=== PATIENT | male | born 1990 | race Caucasian/White ===

== ENCOUNTER 2023-02-21 09:31 | Outpatient (CLI) | payer BC, SELFPAY | END 2023-02-21 09:32 | disposition home or self-care (01) | PROVIDERS: PCP Nurse Practitioner Family; Visit Provider Nurse Practitioner Family | DX: R53.83 Other fatigue (principal); R10.13 Epigastric pain; G62.9 Polyneuropathy, unspecified | CPT/HCPCS: 80053; 82150; 82607; 82784; 83690; 85025; 86039; 86364 ==

== ENCOUNTER 2023-02-22 09:15 | Outpatient (CLI) | payer BC, SELFPAY ==
[2023-02-22 14:16] LABS: H pylori Ag Stool* Negative (Negative)
== END 2023-02-22 09:16 | disposition home or self-care (01) ==
LOC: KYNREF 09:26
PROVIDERS: PCP Nurse Practitioner Family; Visit Provider Nurse Practitioner Family
DX: R10.13 Epigastric pain (principal)
CPT/HCPCS: 87338

== ENCOUNTER 2023-03-20 19:30 | Outpatient (CLI) | payer BC, SELFPAY ==
--- NOTE | 2023-03-30 14:03 | W.PM.SLEEP ---
Sleep Study Details Details Interpreting Provider: Elena Date of Sleep Study: 03/20/23 Sleep Study Details: STUDY TYPE:? Home unattended ? BMI:? 39.3 ORDERING PROVIDER:Ruthie Arias INDICATION:? Concerns about sleep apnea ? SLEEP SUMMARY:? 409 minutes monitored RESPIRATORY SUMMARY:? AHI 15.7, supine 15.6, prone 10.9, left lateral 25.1, right lateral 42.3 Low oxygen 81 31.9% of study oxygen less than 90% Snoring 4.7% PERIODIC LIMB MOVEMENTS OF SLEEP:? Not recorded during home study CARDIAC:? Range 48-105, mean 72.4 IMPRESSION:? Moderate obstructive sleep apnea worse in the lateral positions with significant hypo oxygenation RECOMMENDATION: Treatment options include AutoSet CPAP possibly a dental appliance. Weight loss is also recommended. Once affective sleep therapy is established recommend an overnight oximetry study.
== END 2023-03-20 19:31 | disposition home or self-care (01) ==
LOC: SLEEP 23:09
PROVIDERS: PCP Nurse Practitioner Family; Visit Provider Nurse Practitioner Family
DX: G47.33 Obstructive sleep apnea (adult) (pediatric) (principal)
CPT/HCPCS: 95806

== ENCOUNTER 2023-04-12 14:52 | Outpatient (CLI) | payer BC, SELFPAY | END 2023-04-12 14:53 | disposition home or self-care (01) | PROVIDERS: PCP Nurse Practitioner Family; Visit Provider Nurse Practitioner Family | DX: R53.83 Other fatigue (principal) | CPT/HCPCS: 80048; 81015; 86618 ==

== ENCOUNTER 2023-05-20 08:07 | Outpatient (CLI) | payer BC, SELFPAY | END 2023-05-20 08:08 | disposition home or self-care (01) | LOC: KYNREF 08:11 | PROVIDERS: PCP Nurse Practitioner Family; Visit Provider Nurse Practitioner Family | DX: R53.83 Other fatigue (principal); Z13.6 Encounter for screening for cardiovascular disorders; Z13.1 Encounter for screening for diabetes mellitus | CPT/HCPCS: 80061 ==

== ENCOUNTER 2023-07-14 08:13 | Outpatient (CLI) | payer BC, SELFPAY ==
[2023-07-14 09:18] LABS: Glucose Fasting 86 mg/dl (70-95)
[2023-07-14 10:52] LABS: Glucose 2 Hour 98 mg/dl (70-155)
[2023-07-18 17:15] LABS: Vitamin B6 (Pyridoxal 5-Phos) 17.8 nmol/L (20.0-125.0)
== END 2023-07-14 08:14 | disposition home or self-care (01) ==
PROVIDERS: PCP Nurse Practitioner Family; Visit Provider Psychiatry & Neurology Neurology
DX: G58.8 Other specified mononeuropathies (principal)
CPT/HCPCS: 36415; 82947; 82950; 84207; 86334

== ENCOUNTER 2023-09-28 12:59 | Outpatient (CLI) | payer BC, SELFPAY | END 2023-09-28 13:00 | disposition home or self-care (01) | LOC: RAD 13:00 | PROVIDERS: PCP Nurse Practitioner Family; Visit Provider Nurse Practitioner Family | DX: I51.7 Cardiomegaly (principal); I35.1 Nonrheumatic aortic (valve) insufficiency; I34.0 Nonrheumatic mitral (valve) insufficiency; I07.1 Rheumatic tricuspid insufficiency | CPT/HCPCS: 93306 ==

== ENCOUNTER 2024-10-25 11:06 | Outpatient (CLI) | payer BC, SELFPAY | END 2024-10-25 11:07 | disposition home or self-care (01) | PROVIDERS: PCP Nurse Practitioner Family; Visit Provider Nurse Practitioner Family | DX: R20.2 Paresthesia of skin (principal) | CPT/HCPCS: 80053; 82607; 84443; 85025 ==

== ENCOUNTER 2024-12-07 07:51 | Outpatient (CLI) | payer BC, SELFPAY | END 2024-12-07 07:52 | disposition home or self-care (01) | LOC: RAD 07:51 | PROVIDERS: PCP Nurse Practitioner Family; Visit Provider Nurse Practitioner Family | DX: I77.810 Thoracic aortic ectasia (principal); I07.1 Rheumatic tricuspid insufficiency | CPT/HCPCS: 93306 ==

== ENCOUNTER 2024-12-11 16:44 | Outpatient (CLI) | payer BC, SELFPAY | END 2024-12-11 16:45 | disposition home or self-care (01) | PROVIDERS: PCP Nurse Practitioner Family; Visit Provider Nurse Practitioner Family | DX: R53.83 Other fatigue (principal); R20.2 Paresthesia of skin | CPT/HCPCS: 82728; 84207; 84403 ==

== ENCOUNTER 2025-05-02 20:23 | Emergency (ER) | payer BC, SELFPAY ==
--- OUTSIDE RECORDS SUMMARY | 2025-05-02 20:25 | XMS_ITS | Clinical Summary ---
Author Organization [facility] Address [address] , [address] [place] [address] Phone Care Team Providers Care Corporate Law Specialist Name Role Phone 4CareTeamNurse-MA, 4CareTeamNurse-MA Unavailable Unavailable Conditions or Problems Problem Name Problem Code Onset Date Status Entry Date Provider Comment Standard Description Annotate Herpetic neuralgia 86565720 (SNOMED CT) Active Glory Chiu Neuralgia Numbness tingling bilat legs below knees [id number] (SNOMED CT) Active Glory Chiu Paresthesia of lower extremity Medications Medication Instructions Start Date Stop Date Generic Name NDC Provider OMEPRAZOLE 20 MG CPDR omeprazole [id number] Fernie Watson MD Medications Administered No information available. Allergies, Adverse Reactions, Alerts Allergy Name Reaction Description Start Date Severity Statu s Provider NO KNOWN DRUG ALLERGIES Mild Active Glory Chiu Results Date Name Value Unit Range Flag Description Office Visit: Office Visit P aresthesia of skin Records sent Pt schd fax MEDS REVIEW Done Documenta tion of current medications (procedure) Internal Other: Authorizatio n - OBS [email or web address] Yes Authoriza tion: Release of Information - Authorize [facility] - Payment and Healthcare Operations ROIAUTHOTHER Yes Authoriz ation: Release of Information - Authorize Others/Insurance - Payment and Healthcare Operations HIECONSENT Yes Consent To Release information to the Health Information Exchange (HIE) [email or web address] Yes Authorizat ion: Authorization for [facility] to leave messages, voicemail, send text messages, send emails AUTHRELHCARE Yes Authoriz ation: Release/Retrieval of Information to/from Healthcare Facilities, Pharmacy Benefit Payers and Providers AUTHPRIVPRAC Yes Authoriz ation: Notice of privacy practices AUTHBENEFIT Yes Authoriza tion: Assignment of Benefits and Payment Agreement Internal Other: Verbal Autho rization/Emergency Contact - OBS VERBAL_EMER Done Verbal au thorization and emergency contact Plan of Care Type Date Detail Pending order Vitamin B6 (Pyri doxine) - fasting after midnight Pending order Vitamin B6 (Pyri doxine) - fasting after midnight Pending order Follow up as nee ded Pending order Immunofixation S yakelin Pending order Vitamin B6 (Pyri doxine) - fasting after midnight Pending order Glucose Fast & 2 hr (2 hr GTT) - fasting after midnight Pending order Patient Instruct ions Procedures Code Procedure Name Date Entry Date [facility]-[id number] Documentation of current medicatio ns ORDERS Follow up as needed ORDERS Patient Instructions ORDERS Immunofixation Serum ORDERS Vitamin B6 (Pyridoxi ne) - fasting after midnight ORDERS Glucose Fast & 2hr ( 2 hr GTT) - fasting after midnight Vital Signs No information available. Immunizations No information available. Advance Directives No information available.
--- OUTSIDE RECORDS SUMMARY | 2025-05-02 20:26 | XMS_ITS | Clinical Summary ---
Author Organization [facility] Address [address] [place] [id number] Care Team Providers Care Batch Operator Name Role Phone Roya Triana MD Primary Care Provider [phone] Allergies No known active allergies Medications famotidine (PEPCID) 20 mg tablet Take 20 mg by mouth once daily. 1 Active NebulizerIndicati ons:Wheezing,Hypo alexandre,Moderate persistent reactive airway disease with acute exacerbation (HC) Nebulizer, disposable neb kit x 4, reuseable neb kit x 1, mask x 1, filters x 1. Frequency of use: every 4 hours as neededdaily; Medication:Alb uterol Length of need: 12 months 1 Each 2 Active albuterol (PROVENTIL;VENTOL IN) 2.5 mg/0.5 mL neb solutionIndicatio ns:Wheezing Inhale 0.5 mL (2.5 mg) via a nebulizer every 6 hours if needed (wheezing). 15 mL 2 Active omeprazole (PRILOSEC) 20 mg Delayed-Release capsule Take 20 mg by mouth once daily before a meal. 4 Active diphenhydrAMINE (Allergy) 25 mg tablet Take 25 mg by mouth every 4 hours if needed. Active Active Problems Problem Noted Date Diagnosed Date Gastroesophageal reflux disease 10/23/2021 11/23/2022 Social History Tobacco Use Types Packs/Day Years Used Date Smoking Tobacco: Former Cigarettes Smokeless Tobacco: Never Tobacco Cessation:Counseling Given: Yes Alcohol Use Standard Drinks/Week Comments Not Currently 0 (1 standard drink = 0.6 oz pur e alcohol) Interpersonal Safety Answer Date Record ed Are you being hit, kicked, p ushed or yelled at (see row info)? 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 Gender Identity Not on file Sexual Orientation Not on file Obstetrics History Last Filed Vital Signs Vital Sign Reading Time Taken Comments Blood Pressure 122/82 12/24/2024 9:18 AM CDT tow er Pulse 69 12/24/2024 9:18 AM CDT Temperature 36.4 C (97.6 F) 10/15/2023 2:01 PM CDT Respiratory Rate 18 12/28/2023 1:45 PM CDT Oxygen Saturation 96% 12/24/2024 9:18 AM CDT Inhaled Oxygen Concentration - - Weight 137.4 kg (303 lb) 12/24/2024 9:18 AM CDT Height 180.3 cm (5' 11) 11/23/2022 10:00 AM CDT Body Mass Index 42.26 11/23/2022 10:00 AM CDT Plan of Treatment Health Maintenance Due Date Last Done Comments Tetanus booster 02/18/2000 Depression screening for age 12+ 2001 HIV for age 15-65 02/18/2004 BMI (ht and wt on same day) for age 18+ 2007 Hepatitis C screening for ag e 18-79 2007 Hepatitis B series for 19+ ( 1 of 3 - 19+ 3-dose series) 02/18/2008 HPV series for age 9-45 (1 - 3-dose SCDM series) 02/18/2016 Lipids for age 35-44 02/18/2024 COVID-19 vaccine series ( - 2023-25 season) 2025 Influenza Vaccine (#1) 2025 RSV vaccine for adults or (1 - 1-dose 75+ series) 02/18/2064 Pneumococcal series for age 6-49 Aged Out No longer eligible based on patient's age to complete this topic Insurance [place] [address] Care Teams Batch Operator Relationship Specialty Start Date End Date Roya Triana MD [address] [place] [address] PCP - General Family Practice 11/23/22
[2025-05-02 20:29] VITALS: BP 142/85; PULSE 78; RESP 16; TEMP 37.2; O2SAT 98; BMI 41.8
--- NOTE | 2025-05-02 21:13 | ED.GENADULT ---
HPI - General Adult General Date Seen: 05/15/25 Chief complaint: Lower Extremity Swelling Stated complaint: lower leg pain and swelling Time Seen by Provider: 05/02/25 20:52 Source: patient Mode of arrival: ambulatory Limitations: no limitations History of Present Illness HPI narrative: Patient is a very nice 35-year-old gentleman who suffers from bilateral leg swelling, this is been for a couple years, he has had a workup for this with his primary care physician. There is nothing that has come of it he has had normal kidney function and normal electrolytes. He has noted the swelling on often at times, and has been worse the last couple months, with his right leg being worse than his left. He has no however noted usually worse than his right. He has had no chest pain shortness of breath no past history DVTs. No recent immobilization. He does have a history however of tricuspid regurgitation and enlargement of his ascending aorta, he is followed by Cardiology. Has normal RV function, denies any shortness of breath or decreased exercise tolerance. Comes in tonight for evaluation as he called this clinic, and when he told the triage person that he was having leg swelling should they recommended that he comes to the ER. Related Data Home Medications ?Medication ?Instructions ?Recorded ?Confirmed cetirizine 10 mg tablet (Aller-Jyoti) 10 mg PO QDAY PRN 04/12/23 12/11/24 cyanocobalamin (vitamin B-12) 1,000 mcg PO QDAY 11/10/23 12/11/24 1,000 mcg capsule Tirzepatide/Pyridoxine 05/02/25 testosterone cypionate 200 mg/mL 80 mg IM 2XW 05/02/25 05/02/25 intramuscular oil Previous Rx's ?Medication ?Instructions ?Recorded fluticasone 250 mcg-salmeterol 50 1 inh inhalation BID 30 days #60 ea 07/05/23 mcg/dose blistr powdr for inhalation (Advair Diskus) albuterol sulfate 2.5 mg/3 mL 2.5 mg (3 mL) inhalation QID PRN 05/15/24 (0.083 %) solution for nebulization cough #90 mL omeprazole 20 mg capsule,delayed 20 mg PO DAILY #90 caps 07/20/24 release albuterol sulfate 90 mcg/actuation 2 inh inhalation Q4H PRN wheezing 12/11/24 aerosol inhaler #6.7 grams Allergies Allergy/AdvReac Type Severity Reaction Status Date / Time No Known Drug Allergies Allergy Verified 12/11/24 16:25 Review of Systems Status of ROS: Reports: 10 or more systems reviewed and unremarkable except as noted in History and below [facility] Medical History Paresthesia (~09/2022) ?R20.2 - Paresthesia of skin (ICD-10) Family History Father GERD (gastroesophageal reflux disease) Social History Narrative: . 2 children. No formal exercise. What is your current living situation?: I presently have a place to live Problems where you live: no known problems In the past 12 months, utilities in danger of being shut off: no In past 12 months, lack of transportation kept you from medical appts, meetings, work, or getting things needed for daily living: no In the past 12 mos, have been you worried that your food would run out before you had money to buy more?: never true In the past 12 mos, the food you bought just didn't last and you didn't have money to buy more?: never true How often does anyone, including family, friends and others, physically hurt you: never How often does anyone, including family, friends and others, insult or talk down to you: rarely How often does anyone, including family, friends and others, threaten you with harm: never How often does anyone, including family, friends and others, scream or curse at you: rarely Health Related Social Needs: Other personal risk factors, not elsewhere classified (Z91.89) Exam Narrative: Exam Narrative: On examination he is in no apparent distress speaking to me normally blood pressure is just slightly elevated, pupils equal round reactive to light, JVP is 4 cm above the sternoclavicular angle, chest is good air entry bilaterally no wheezing crackles noted his heart sounds are otherwise normal with no clicks murmurs or gallops his abdomen is soft and obese. He has 1 to 2+ pitting edema bilaterally, to mid knee level. Right maybe slightly worse than left. No plus Thora normal pulses in his lower legs negative Homans sign. Const: Vital Signs, click to edit/add: Vital Signs - 24 hr 05/02/25 20:29 Temperature 99.0 F Pulse Rate [Pulse Oximeter] 78 Respiratory Rate 16 Blood Pressure [Ri ght Upper Arm] 142/85 H Pulse Oximetry 98 Oxygen Delivery Me thod Room Air Documenting provider has reviewed patient's vital signs: yes Course Course ED Course: Discussed with the patient, D-dimer is negative, I do not think this is anything other than normal edema of his lower extremities, he can consider following up with primary care, consideration of Lasix or some other diuretic, weight loss, I do not think that this is a DVT. This also could be a little bit of stick matted of his tricuspid regurgitation with was moderate. On his echo most recently. Patient was comfortable with this plan. Discharged ambulatory. Vital Signs Vital signs: Initial Vital Signs Temperature 99.0 F 05/02/25 20:29 Temperature Source Temporal Artery Scan 05/02/25 20:29 Pulse Rate 78 05/02/25 20:29 Respiratory Rate 16 05/02/25 20:29 Blood Pressure 142/85 H 05/02/25 20:29 Blood Pressure Mean 104 05/02/25 20:29 Blood Pressure Position Sitting 05/02/25 20:29 Pulse Oximetry 98 05/02/25 20:29 Oxygen Delivery Method Room Air 05/02/25 20:29 Vital Signs Temperature 99.0 F 05/02/25 20:29 Pulse Rate 78 05/02/25 20:29 Respiratory Rate 16 05/02/25 20:29 Blood Pressure 142/85 H 05/02/25 20:29 Pulse Oximetry 98 05/02/25 20:29 Oxygen Delivery Method Room Air 05/02/25 20:29 Temperature 99.0 F 05/02/25 20:29 Pulse Rate 78 05/02/25 20:29 Respiratory Rate 16 05/02/25 20:29 Blood Pressure 142/85 H 05/02/25 20:29 Pulse Oximetry 98 05/02/25 20:29 Oxygen Delivery Method Room Air 05/02/25 20:29 Medical Decision Making MDM Narrative Medical decision making narrative: I had a long discussion with him I do not think he has a DVT. I think this would be highly unlikely given his history of other issues ongoing, the more likely core courses use of salt upright posture size, along with his tricuspid regurgitation. I do think if D-dimer is negative we can send him home and he was in agreement with this. Medical Records Medical records reviewed: Yes I reviewed the patient's medical records Lab Data Lab results reviewed: Yes I reviewed the patient's lab results Labs: Lab Results 05/02/25 Range/Units 21:07 D-Dimer Quant (PE/DVT) < 0.27 (0.00-0.50) ug/ml Discharge Plan Discharge Clinical Impression: Bilateral leg edema Patient Disposition: Home, Self-Care Condition: Stable Instructions: Leg Edema (ED) Additional Instructions: As I discussed with you I think this is multifactorial with your salt intake, here tricuspid regurgitation, and other issues. Your D-dimer which the test for blood clot was negative, I think I have a low suspicion, for this obviously given this is a chronic condition, I do recommend you follow-up with her primary care physician, 1 of the things you can consider wearing are Lul stockings. Primary care can talked about other issues like using some Lasix or diuretics. Activity Level: Light activity Discharge Diet: Regular Prescriptions: No Action cetirizine [Aller-Jyoti] 10 mg tablet 10 mg PO QDAY PRN albuterol sulfate 2.5 mg /3 mL (0.083 %) solution for nebulization 2.5 mg inhalation QID PRN (Reason: cough) Qty: 90 6RF cyanocobalamin (vitamin B-12) 1,000 mcg capsule 1,000 mcg PO QDAY albuterol sulfate 90 mcg/actuation HFA aerosol inhaler 2 inh inhalation Q4H PRN (Reason: wheezing) Qty: 6.7 2RF testosterone cypionate 200 mg/mL oil 80 mg IM 2XW Tirzepatide/Pyridoxine fluticasone propion-salmeterol [Advair Diskus] 250-50 mcg/dose blister with device 1 inh inhalation BID 30 Days Qty: 60 11RF omeprazole 20 mg capsule,delayed release(DR/EC) 20 mg PO DAILY Qty: 90 3RF Follow Up/Referrals: Corin Arias, HEALTHCARE FACILITY ADMINISTRATOR, PHOTOGRAPHIC EQUIPMENT ASSEMBLER [Primary Care Provider, Family Practice] Stand Alone Forms: MyHealth Info Instructions
--- OUTSIDE RECORDS SUMMARY | 2025-05-02 21:21 | XMS_ITS | Clinical Summary ---
Author Organization [facility] Address [address] , [address] [place] [address] Phone Care Team Providers Care Horticultural Specialty Grower Name Role Phone 4CareTeamNurse-MA, 4CareTeamNurse-MA Unavailable Unavailable Conditions or Problems Problem Name Problem Code Onset Date Status Entry Date Provider Comment Standard Description Annotate Herpetic neuralgia [id number] (SNOMED CT) Active Glory Chiu Neuralgia Numbness tingling bilat legs below knees [id number] (SNOMED CT) Active Glory Chiu Paresthesia of lower extremity Medications Medication Instructions Start Date Stop Date Generic Name NDC Provider OMEPRAZOLE 20 MG CPDR omeprazole [id number] Fernie Watson MD Medications Administered No information [...] Procedures Code Procedure Name Date Entry Date [facility]-[id number] Documentation of current medicatio ns ORDERS Follow up as needed ORDERS Patient Instructions ORDERS Immunofixation Serum ORDERS Vitamin B6 (Pyridoxi ne) - fasting after midnight ORDERS Glucose Fast & 2hr ( 2 hr GTT) - fasting after midnight Vital Signs No information available. Immunizations No information available. Advance Directives No information available.
[2025-05-02 21:52] LABS: D Dimer Quantitative* < 0.27 ug/ml (0.00-0.50)
== END 2025-05-02 23:01 | disposition home or self-care (01) ==
PROVIDERS: Emergency Provider Family Medicine; PCP Nurse Practitioner Family
DX: R60.0 Localized edema (principal)
CPT/HCPCS: 36415; 85379; 99283; 99284

== ENCOUNTER 2025-05-27 08:34 | Outpatient (CLI) | payer BC, SELFPAY | END 2025-05-27 08:35 | disposition home or self-care (01) | PROVIDERS: PCP Nurse Practitioner Family; Visit Provider Nurse Practitioner Family | DX: Z00.00 Encounter for general adult medical examination without abnormal findings (principal) | CPT/HCPCS: 80061; 82947 ==